=== PATIENT | female | born 1970 ===

== ENCOUNTER 2024-08-22 09:44 | Outpatient (CLI) | payer OTHER, SELFPAY ==
--- NOTE | 2024-08-22 09:45 | CRLHL7_ITS ---
For Patients: As a result of the Century Cures Act, medical imaging exams and procedure reports are released immediately into your electronic medical record. You may view this report before your referring provider. If you have questions, please contact your health care provider. CLINICAL HISTORY: RIGHT breast pain. COMPARISON: None TECHNIQUE: Digital BILATERAL mammogram in 4 projections with computer-aided detection. Tomosynthesis was used in this interpretation. Real-time ultrasound imaging of RIGHT breast with imaging documentation. BREAST COMPOSITION: There are scattered areas of fibroglandular density. FINDINGS: 3D cc/MLO bilateral mammogram images submitted. No suspicious masses or architectural distortion. Benign calcifications. No adenopathy. Targeted right breast ultrasound performed in the area of concern at 4 o`clock 4 cm from the nipple and 10 o`clock 7 cm from the nipple. Normal breast tissue is present. No fibrocystic change or mass. IMPRESSION: No suspicious findings. No evidence of malignancy. RECOMMENDATIONS: Clinical follow-up. Routine screening mammography. A lay language report of this examination will be provided to the patient. BI-RADS Category 2. Benign. Dictated by Christopher Mc MD @ 08/22/2024 1:01:51 PM Dictated by: Christopher Mc MD @ 08/22/2024 13:02:07 (Electronically Signed)
--- NOTE | 2024-08-22 10:15 | CRLHL7_ITS ---
For Patients: As a result of the Century Cures Act, medical imaging exams and procedure reports are released immediately into your electronic medical record. You may view this report before your referring provider. If you have questions, please contact your health care provider. CLINICAL HISTORY: RIGHT breast pain. COMPARISON: None TECHNIQUE: Digital BILATERAL mammogram in 4 projections with computer-aided detection. Tomosynthesis was used in this interpretation. Real-time ultrasound imaging of RIGHT breast with imaging documentation. BREAST COMPOSITION: There are scattered areas of fibroglandular density. FINDINGS: 3D cc/MLO bilateral mammogram images submitted. No suspicious masses or architectural distortion. Benign calcifications. No adenopathy. Targeted right breast ultrasound performed in the area of concern at 4 o`clock 4 cm from the nipple and 10 o`clock 7 cm from the nipple. Normal breast tissue is present. No fibrocystic change or mass. IMPRESSION: No suspicious findings. No evidence of malignancy. RECOMMENDATIONS: Clinical follow-up. Routine screening mammography. A lay language report of this examination will be provided to the patient. BI-RADS Category 2. Benign. Dictated by Christopher Mc MD @ 08/22/2024 11:04:25 AM (Electronically Signed)
== END 2024-08-22 09:45 | disposition home or self-care (01) ==
LOC: MAMMO 09:45
PROVIDERS: Visit Provider Registered Nurse
DX: N64.4 Mastodynia (principal)
CPT/HCPCS: 76642; 77066; G0279